=== PATIENT | female | born 1960 | race Caucasian/White ===

== ENCOUNTER → 2016-07-24 | Outpatient (CLI) | payer OTHER | END | disposition home or self-care (01) | LOC: LAB.O 16:55 | PROVIDERS: ATTEND Nurse Practitioner Family | DX: E55.9 Vitamin D deficiency, unspecified (principal) ==

== ENCOUNTER 2017-04-09 10:54 | Emergency (ER) | payer OTHER ==
--- NOTE | 2017-04-09 11:18 | ED.PDOC ---
History of Present Illness - General Chief Complaint: Lower Extremity Injury Stated Complaint: left hip pain Time Seen by Provider: 04/09/17 11:09 Source: patient Exam Limitations: no limitations - History of Present Illness Initial Comments: Patient presents with left hip pain for four days. She had bunyon removal and hammer toe correction surgery by a carpet inspector finished two weeks ago. She has been non- ambulatory since and has been using a scooter. 4 days ago she was trying to transfer herself from the scooter and twisted her torso. She heard something in her left hip "pop". Since then she has had pain deep in the left hip with radiation down the anterior thigh. The pain is worse with full hip extension and flexion around 90 degrees. It is sharp in nature. No associated symptoms. No previous episodes. She does not want pain medications at this time because she took some Soper earlier today. She says it is not working for the hip pain. No other complaints. Timing/Duration: other - 4 days Severity: moderate Improving Factors: rest Worsening Factors: movement Associated Symptoms: denies symptoms Allergies/Adverse Reactions: Allergies Morphine Allergy (Verified 04/09/17 11:11) Vomitting Home Medications: Ambulatory Orders Cyclobenzaprine HCl [Flexeril] 10 mg PO TID #30 tab 04/09/17 Review of Systems - Review of Systems Constitutional: States: no symptoms reported EENTM: States: no symptoms reported Respiratory: States: no symptoms reported Cardiology: States: no symptoms reported Gastrointestinal/Abdominal: States: no symptoms reported Genitourinary: States: no symptoms reported Musculoskeletal: States: see HPI Skin: States: no symptoms reported Neurological: States: no symptoms reported Endocrine: States: no symptoms reported Hematologic/Lymphatic: States: no symptoms reported Family Medical History - Family History Mother Family History: Unknown Physical Exam - Physical Exam General Appearance: Alert Respiratory: chest non-tender, lungs clear, normal breath sounds Cardiovascular/Chest: normal peripheral pulses, regular rate, rhythm, no edema Peripheral Pulses: posterior tibialis,right: 2+, posterior tibialis,left: 2+ Gastrointestinal/Abdominal: normal bowel sounds, non tender, soft Extremity: other - Pain deep in the left hip joint with full extension of the left hip and flexion of the left hip at 90 degrees. This occurs equally with PROM and AROM. Adduction and abduction of the hips against resistance does not elicit pain. Both hips are NTTP. Neurologic: other - non-ambulatory due to surgery Skin Exam: normal color Lymphatic: no adenopathy Progress - Progress Progress: 04/09/17 12:21 Two view of the left hip showed no bony abnormalities, fractures, nor dislocations. Patient given RX for flexeril and orders to follow up with orthopedics if no improvement in two weeks. Departure - Departure Clinical Impression: Sprain of hip Disposition: Discharge to Home or Self Care Condition: Good Departure Forms: ED Discharge - Pt. Copy, Patient Portal Self Enrollment Instructions: DI for Leg Pain Diet: resume usual diet Activity: other - ambulate with crutches Referrals: Jake Posadas MD [Primary Care Provider] - 1-2 Weeks Prescriptions: Cyclobenzaprine HCl [Flexeril] 10 mg PO TID #30 tab Home Medications: Ambulatory Orders Cyclobenzaprine HCl [Flexeril] 10 mg PO TID #30 tab 04/09/17
--- NOTE | 2017-04-09 11:44 | RAD ---
EXAM DESCRIPTION: Hip,Left 2 Views CLINICAL HISTORY: 56 years, Female, left hip pain COMPARISON: None TECHNIQUE: AP and frog leg lateral views of the hip FINDINGS: Two-view right hip shows no fracture or bone lesion. Degenerative disc disease is seen in the lower L-spine especially L5-S1. There is no hip joint space abnormality observed. Sacrum appears intact. Intact bones of the pelvic ring. Multiple phleboliths in the pelvis. IMPRESSION: Negative for fracture or dislocation. Electronically signed by: Calos Long MD 04/09/2017 11:43 AM [facility]
[2017-04-09 12:47] VITALS: BP 96/58; O2SAT 95
== END 2017-04-09 12:47 | disposition home or self-care (01) ==
LOC: ER 10:54
DX: S73.109A Unspecified sprain of unspecified hip, initial encounter (principal); X50.1XXA Overexertion from prolonged static or awkward postures, initial encounter; Y92.9 Unspecified place or not applicable

== ENCOUNTER → 2017-11-16 | Outpatient (CLI) | payer OTHER | LOC: LAB.O 16:43 | PROVIDERS: ATTEND Family Medicine | DX: I10 Essential (primary) hypertension (principal); R53.83 Other fatigue ==

== ENCOUNTER → 2018-12-15 | Outpatient (CLI) | payer BC | LOC: LAB.O 15:12 | PROVIDERS: ATTEND Surgery Plastic and Reconstructive Surgery | DX: Z01.818 Encounter for other preprocedural examination (principal) ==